=== PATIENT | female | born 1985 | race Caucasian/White ===

== ENCOUNTER 2020-04-27 08:00 | Outpatient (CLI) | payer OTHER ==
[2020-05-15] MEDS ORDERED: IBUP-1222 PO (09:18)
[2020-05-15] MEDS ORDERED: HYDR-3240 PO (09:19)
== END 2020-04-27 23:59 | disposition home or self-care (01) ==
LOC: LAB 08:00 → EDSTATUS 05-16 16:27
PROVIDERS: ATTEND Obstetrics & Gynecology
DX: Z11.59 Encounter for screening for other viral diseases (principal)
CPT/HCPCS: 36415; 87635